=== PATIENT | female | born 1990 ===

== ENCOUNTER 2017-01-18 12:40 | Emergency (ER) | payer BC ==
[2017-01-18 12:48] VITALS: BP 155/71; PULSE 93; RESP 16; TEMP 98; O2SAT 100
--- NOTE | 2017-01-18 13:03 | ED PDOC ---
Lower Extremity Pain/Injury Time Seen by Provider: 01/18/17 12:49 Chief Complaint (Nursing): Lower Extremity Problem/Injury History Per: Patient History/Exam Limitations: no limitations Onset/Duration Of Symptoms: Hrs Current Symptoms Are (Timing): Still Present Severity: Mild Additional Complaint(s): 26 y/o female complaining that earlier today she stepped on a tack with a rubber soled shoe. She was able to remove the tack but continues to have pain. Tetanus is not UTD. Past Medical History Vital Signs: Last Vital Signs Temp 98.0 F 01/18/17 12:46 Pulse 93 H 01/18/17 12:46 Resp 16 01/18/17 12:46 BP 155/71 H 01/18/17 12:46 Pulse Ox 100 01/18/17 12:46 - Family History Family History: States: No Known Family Hx - Home Medications Home Medications: Ambulatory Orders Medication Instructions Recorded Ciprofloxacin [Cipro] 1 tab PO BID #14 tab 01/18/17 - Allergies Allergies/Adverse Reactions: Allergies Allergy/AdvReac Type Severity Reaction Status Date / Time cefazolin [From Anc] Allergy ANAPHYLAXIS Verified 01/18/17 12:45 Review of Systems Musculoskeletal: Positive for: Foot Pain Skin: Negative for: Rash Physical Exam - Physical Exam Appears: Positive for: Well, No Acute Distress Skin: Positive for: Normal Color (superficial healed unopened puncture wound on the left plantar foot. Minimal edema, no erythema, no discharge. ), Warm, Dry Pulses-Dorsalis Pedis (L): 2+ Extremity: Positive for: Swelling (mild left plantar surface of the foot), Other - ECG O2 Sat by Pulse Oximetry: 100 - Radiology X-Ray: Interpreted by Me (Foot x-ray) X-Ray Interpretation: No Acute Disease - Progress ED Course And Treament: Wound cleansed and dressed. Bacitracin ointment applied. Medical Decision Making Medical Decision Making: Impression: Puncture wound Plan: - XR Left Foot r/o foreign body - Update Tetanus ~ Scribe Attestation: Documented by~Sadia Santana, acting as a scribe for CHRISTOPHER Saldana. Provider Scribe Attestation: All medical record entries made by the Scribe were at my direction and personally dictated by me. I have reviewed the chart and agree that the record accurately reflects my personal performance of the history, physical exam, medical decision making, and the department course for this patient. I have also personally directed, reviewed, and agree with the discharge instructions and disposition. Disposition - Clinical Impression Clinical Impression: Puncture wound of foot - Patient ED Disposition Is Patient to be Admitted: No - Disposition Referrals: Podiatry Clinic [Outside] Disposition: Routine/Home Disposition Time: 13:30 Condition: STABLE Additional Instructions: Follow up with podiatry clinic for wound check. Prescriptions: Ciprofloxacin [Cipro] 1 tab PO BID #14 tab Instructions: Puncture Wound (ED) Forms: [employer] (Occitan) Print Language: LEBANESE
--- NOTE | 2017-01-18 13:51 | RAD ---
PROCEDURE: Left Foot Radiographs. HISTORY: trauma COMPARISON: None. FINDINGS: BONES: Normal. No fracture. JOINTS: Normal. There is no abnormal widening of the proximal 1st and 2nd tarsal metatarsal joint. Subtalar joint is unremarkable. Small calcaneal spur is noted. SOFT TISSUES: Normal. OTHER FINDINGS: None. IMPRESSION: No fracture appreciated.
== END 2017-01-18 13:50 | disposition home or self-care (01) ==
LOC: H.ER 12:40
DX: S91.332A Puncture wound without foreign body, left foot, initial encounter (principal); W26.8XXA Contact with other sharp object(s), not elsewhere classified, initial encounter; Y92.89 Other specified places as the place of occurrence of the external cause